=== PATIENT | male | born 1975 | race American Indian/Alaskan Native ===

== ENCOUNTER 2019-07-28 10:26 | Emergency (ER) | payer BC ==
[2019-07-28 10:36] VITALS: BP 146/74; PULSE 110; TEMP 97
--- NOTE | 2019-07-28 10:46 | PDOC ---
Rapid Medical Evaluation Chief Complaint: Cold Symptoms Time Seen by Provider: 07/28/19 10:39 Medical Evaluation: Allergies Allergy/AdvReac Type Severity Reaction Status Date / Time No Known Allergies Allergy Verified 07/28/19 10:35 Vital Signs Temp Pulse Resp BP Pulse Ox 97.0 F L 110 H 17 146/74 100 07/28/19 10:35 07/28/19 10:35 07/28/19 10:35 07/28/19 10:35 07/28/19 10:35 07/28/19 10:43 HPI: The patient is a 44 y/o male with no past medical history, who presents for cough and subjective fevers for 2-3 days. The patient has no known exposure to coronavirus. 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 -Recent travel. They are concerned they have coronavirus and present for testing. - difficulty breathing, shortness of breath, chest pain, lightheadedness, dizziness nausea, vomiting, and diarrhea. Other 12 point ROS reviewed and negative. EXAM: General: NAD, well-appearing, AAO x3. ENT: No rhinorrhea or nasal congestion. Neck: FROM, no midline tenderness Lungs: Clear to auscultation bilateral without wheezes rales or rhonchi. Normal excursion. Patient is able to speak in full sentences. Heart: tachy, S1-S2 present, no murmurs rubs or gallops. Abdomen: Non-distended MSK/Extremities: no decreased ROM, no obvious deformities. No cyanosis Neuro: Normal gait, cranial nerves II through XII grossly intact. SKIN: No rashes, bruising. Color normal appearing A/P: Cough and fever Patient has no past medical history, denies recent travel and known COVID exposure. Patient does not meet criteria for testing at this time. We will refer the patient to outpatient testing clinics in the [facility] for further monitoring of their symptoms. Strict return precautions given. Instructed that if they should have shortness of breath, chest pain or difficulty breathing to return to the emergency room for further management and treatment. Discharge home I discussed the physical exam findings, ancillary test results and final diagnoses with the patient. I answered all of the patient's questions. The patie nt was satisfied with the care received and felt comfortable with the discharge plan and treatment plan. The Patient agrees to follow up with the primary care physician/specialist within 24-72 hours. Return precautions were given Discharge Disposition - Diagnosis Cough - Discharge Dispostion Disposition: HOME Condition at time of disposition: Good - Referrals - Patient Instructions Printed Discharge Instructions: [facility] COVID-19 Isolation Protocol, [facility]-Coronavirus Instructions Additional Instructions: You were seen for your cough and possible Stone virus (COVID-19) Please call [phone] Take Tylenol 650mg every 6 hours as needed for fever or pain You may take robitussin or other over the counter cough syrup. Follow the dosing instructions on the bottle. Warm tea, honey, and salt water gargles may help your symptoms. Please self-quarantine until you follow up with department of health. Return to the ER for shortness of breath, difficulty breathing, chest pain, or if you have any changes in your symptoms. - Post Discharge Activity
== END 2019-07-28 11:07 | disposition home or self-care (01) ==
LOC: JER 10:26
DX: R05 Cough (principal)
CPT/HCPCS: 99282-25